=== PATIENT | female | born 1970 | race Caucasian/White ===

== ENCOUNTER 2023-02-02 10:12 | Day surgery (SDC) | payer BC ==
[2023-01-30 13:08] LABS: Hematocrit 43.1 % (36.0-45.0); Lymphocytes % 14.7 % (15.3-44.8); MCV 95.2 fL (80-100); MPV 7.6 fL (7.6-11.3); Platelets 236 thou/uL (152-406); RBC Red Blood Cell Count 4.53 M/uL (3.86-4.86)
[2023-01-30 13:25] LABS: ALT/SGPT 34 U/L (13-56); AST/SGOT 15 U/L (15-37); Albumin 3.6 g/dL (3.4-5.0); Alkaline Phosphatase 83 U/L (45-117); BUN Blood Urea Nitrogen 13 mg/dL (7-18); Bicarbonate 27 mEq/L (21-32); Bilirubin Total 0.4 mg/dL (0.2-1.0); Glomerular Filtration Rate 84 ml/min (=/>90); Glucose Level 152 mg/dL (74-106); Lipase 25 U/L (13-75); Potassium 3.3 mEq/L (3.5-5.1); Protein, Total 7.1 g/dL (6.4-8.2); Sodium Level 141 mEq/L (136-145)
[2023-01-30 13:27] LABS: Bilirubin Direct < 0.1 mg/dL (0-0.2); Bilirubin Indirect, Calculated ND mg/dL (0.2-0.8)
--- NOTE | 2023-01-30 13:29 | RAD REPORT ---
EXAM DESCRIPTION: RAD - Chest Pa And Lat (2 Views) - 01/30/2023 1:14 pm CLINICAL HISTORY: pre procedural screening. Hypertension COMPARISON: No comparisons TECHNIQUE: PA and lateral views of the chest were obtained. FINDINGS: The lungs are clear. Heart size is normal and central vasculature is within normal limits. No pleural effusion or pneumothorax seen. No acute bony finding noted. IMPRESSION: No acute cardiopulmonary process.
[2023-02-02] MEDS ORDERED: Ringers Lactate 1,000 ML IV ONE (10:44)
[2023-02-02] MEDS ORDERED: LIDOCAINE 2% MPF 5 ML VIAL ONE ×2 (10:59→11:50)
[2023-02-02] MEDS ORDERED: ROCURONIUM 50 MG/5 ML VIAL IV ONE ×2 (10:59→11:49)
[2023-02-02] MEDS ORDERED: propofoL 200 MG/20 ML VIAL IV ONE ×2 (10:59→11:48)
[2023-02-02] MEDS ORDERED: FENTANYL CITR 100 MCG/2 ML ONE ×2 (10:59→11:48)
[2023-02-02] MEDS ORDERED: MIDAZOLAM HCL 2 MG/2 ML INJ ONE ×2 (10:59→11:51)
[2023-02-02] MEDS: CEFOXITIN SODIUM 1 GM/VIAL ONE ×2 (11:47→11:56)
[2023-02-02] MEDS ORDERED: ONDANSETRON 4 MG/2 ML VIAL ONE ×2 (11:51→13:19)
[2023-02-02] MEDS ORDERED: dexAMETHasone 4 MG/ML VIAL ONE (12:16)
[2023-02-02] MEDS ORDERED: KETOROLAC 30 MG/ML INJ ONE (12:16)
--- NOTE | 2023-02-02 12:40 | P.BOP ---
Preoperative diagnosis: acute cholecystitis, symptomatic cholelithiasis Postoperative diagnosis: same, umbilical hernia Primary procedure: Laparoscopic cholecystectomy Secondary procedure: umbilical hernia repair Estimated blood loss: <10cc Specimen: gb Findings: as eligio Anesthesia: General Complications: None Transferred to: Recovery Room Condition: Good
[2023-02-02] MEDS ORDERED: GLYCOPYRROLATE 0.2 MG/ML SYR ONE (12:47)
[2023-02-02] MEDS ORDERED: NEOSTIGMINE 1 MG/ML -10 ML VIAL ONE (12:48)
[2023-02-02] MEDS ORDERED: Mastisol Adhesive Liq ONE (12:50)
[2023-02-02] MEDS ORDERED: PROMETHAZINE INJ 25 MG/ML AMP ONE (13:19)
[2023-02-02] MEDS ORDERED: HYDROMORPHONE HCL 1 MG/ML INJ ONE (13:24)
[2023-02-02] MEDS ORDERED: CODEINE 30MG/APAP 300MG TAB ONE (14:39)
--- NOTE | 2023-02-02 18:09 | EKG ---
Test Date: 2023-01-30 Test Time: 13:00:52 Vending Mechanic: SAHRA MEASUREMENT RESULTS: Intervals: Rate: 79 LA: 164 QRSD: 92 QT: 368 QTc: 421 [place]: P: 63 LA: 164 QRS: -29 T: 17 INTERPRETIVE STATEMENTS: Normal sinus rhythm Low voltage QRS Cannot rule out Anterior infarct, age undetermined Abnormal ECG No previous ECG available for comparison Electronically Signed On 02-02-23 18:06:32 CDT by Jude Mesa
--- NOTE | 2023-02-02 18:54 | OP ---
Date of Procedure: 02/02/2023 Surgeon: Jerald Duvall MD Preoperative Diagnoses: Acute cholecystitis, symptomatic cholelithiasis. Postoperative Diagnoses: Acute cholecystitis, symptomatic cholelithiasis plus umbilical hernia. Procedures: Laparoscopic cholecystectomy and open repair of umbilical hernia. Specimen: Gallbladder. Anesthesia: General plus local. Finding: Patient has inflamed gallbladder consistent with acute cholecystitis and as above and also was found to have umbilical hernia with omentum trapped on it. Indication: This is a case of a female, who comes to us with above diagnoses. Fully explained the b enefits, alternatives, and risks of laparoscopic, possible open cholecystectomy, which include, but n ot limited to, infection, bleeding, damage to adjacent structures, anesthesia complication, choledoch olithiasis, bile leak, pancreatitis, SD, and even . She also understands this may not relieve a ny symptoms. She might need more than one surgical intervention. She understood, signed a consent. Description Of Procedure: Patient brought to the operating room, placed in supine position. Anesthe sapna was done without complication. Abdominal area was prepped and draped in usual sterile fashion. Marcaine 0.5% was injected for local anesthetic followed by sharp incision of the skin in the infraum bilical region. Incision was carried down to fascia. We noticed the patient to have umbilical herni a. Umbilical sac was opened. Had some incarcerated omentum that was carefully reduced after being f ully inspected and made sure that it was viable and no bleeding. Fascial edges were cleaned. Then w e placed Vicryl #1 inside of the fascia. Frandy trocar was carefully introduced. Pneumoperitoneum w as obtained. I placed 3 more trocars, 5 mm each one of them, one in epigastric area, two in the righ t upper quadrant using same technique which consisted of local anesthetic, sharp incision of the skin and introduction of the trocars under direct vision. This allowed me to put a grasper in the fundus of the gallbladder, another grasper in the infundibulum retracting the gallbladder in the inferolate ral fashion exposing the triangle of Calot, obtaining critical view. Cystic duct and cystic artery w ere clearly isolated, freed circumferentially and a connection between those and the gallbladder were clearly identified. I proceeded to ligate those by using at least 3 clips proximal, 1 clip distal, ligation in the middle. Same was done with the cystic artery. No bile leak. No bleeding. The gall bladder was removed from the liver using Bovie cauterizer and removed from abdominal cavity using End oCatch through the umbilical incision. The area was inspected once again. Clips were intact. No bi le leak. No bleeding. At that moment, I proceeded to remove the trocars under direct vision, deflat ed pneumoperitoneum. Closed the fascia with #1 Vicryl and also closed the umbilical hernia with #1 V icryl. Irrigated subcutaneous tissue, closed that with 3-0 chromic and the skin in a subcuticular fa shion with 3-0 chromic and Steri-Strips on top. Sponge counts and instrument counts were correct. P atient tolerated the procedure well. Patient on her way to Recovery in stable condition. SERG/ROMMEL Voice ID: [id number] Report ID: [id number]
--- NOTE | 2023-02-02 19:00 | DS ---
Date of Discharge: 02/02/2023 Diagnoses: Acute cholecystitis, symptomatic cholelithiasis, umbilical hernia. Procedure: Laparoscopic cholecystectomy, umbilical hernia repair. Disposition: Home. Activity: As tolerated. No heavy lifting. Plan: Follow up in my office in 1 week. Call for appointment [phone]. Keep area dry for 48 hours, then may shower. Keep Steri-Strip intact. SERG/ROMMEL Voice ID: [id number] Report ID: [id number]
== END 2023-02-02 14:32 | disposition home or self-care (01) ==
LOC: OR 10:12
PROVIDERS: ATTEND Surgery
PROC: 0FT44ZZ Resection of Gallbladder, Percutaneous Endoscopic Approach (ICD-10-PCS; principal; 2023-02-02 12:15)
DX: K80.10 Calculus of gallbladder with chronic cholecystitis without obstruction (principal); R10.11 Right upper quadrant pain; K42.0 Umbilical hernia with obstruction, without gangrene
CPT/HCPCS: 93005; 85025; 80048; 36415; 80076; 88302; 88304; 83690; 71046; 47562; J2550; J2704; J1100; J2710; J2001 ×2; J2250; J3010 ×2; J1170; J0694; J2405 ×2; J7120